=== PATIENT | male | born 1935 | race Caucasian/White ===

== ENCOUNTER 2016-11-28 20:00 | Emergency (ER) | payer OTHER, MEDICARE ==
[~2016-11-28] VITALS: Ht 170.2 cm; Wt 95.3 kg
--- NOTE | 2016-11-28 21:38 | RADIOLOGY REPORT ---
EXAMINATION: XR CHEST CLINICAL INFORMATION: Hemoptysis. COMPARISON: Chest x-ray 02/24/2013 TECHNIQUE: 2 views of the chest were obtained. FINDINGS: Lungs are clear. No pulmonary vascular congestion. No infiltrate or pleural effusion. The heart size is normal. The cardiac and mediastinal contours are normal. There are calcifications of the thoracic aorta. There are multilevel degenerative changes of dorsal spine. Joint narrowing with spurring of the glenohumeral joint of both shoulders right worse than left. IMPRESSION: No acute change of the chest.
--- NOTE | 2016-11-28 21:56 | ED GENERAL ADULT ---
History of Present Illness General Chief Complaint: General Adult Stated Complaint: SPITTING UP BLOOD ?FOOD STUCK IN THROAT Source: patient, family, old records Exam Limitations: no limitations Vital Signs & Intake/Output Vital Signs & Intake/Output Vital Signs Date Time Temp Pulse Resp B/P B/P Pulse O2 O2 Flow FiO2 Mean Ox Delivery Rate 11/30 911 97.4 73 20 135/71 98 Room Air Room Air 11/29 0617 97.5 71 18 141/71 98 Room Air 11/29 0307 97.4 72 18 154/71 97 Room Air 11/29 0056 97.2 67 18 165/71 97 Room Air 11/29 0053 97 Room Air 11/28 2014 98.8 86 16 135/56 99 Room Air ED Intake and Output 11/29 0000 11/28 1200 Intake Total Output Total Balance Patient 210 lb Weight Weight Reported by Patient Measurement Method Allergies Coded Allergies: Penicillins (UNKNOWN 11/28/16) Sulfa (Sulfonamide Antibiotics) (UNKNOWN 11/28/16) cephalexin (UNKNOWN 11/28/16) Reconcile Medications Amlodipine Besylate 10 MG TABLET 1 TAB PO DAILY BP (Reported) Amoxicillin 500 MG CAPSULE 4 CAP PO AD PRN PRIOR TO DENTAL APPT (Reported) Aspirin (Ecotrin*) 81 MG TABLET.DR 1 TAB PO DAILY HEART/BLOOD (Reported) Carboxymethylcellulose Sodium (Retaine Cmc) (Unknown Strength) DROPERETTE ( Unknown Dose) OPH BID BOTH EYES (Reported) Cholecalciferol (Vitamin D3) (Vitamin D) 2,000 UNIT TABLET 1 TAB PO DAILY SUPPLEMENT (Reported) Clonazepam 1 MG TABLET 1 TAB PO QPM ANXIETY/SLEEP (Reported) Cyclosporine (Restasis) 0.05 % DROPERETTE 1 GTT OPH BID BOTH EYES (Reported) Dabigatran Etexilate Mesylate (Pradaxa 150 MG) 150 MG CAPSULE 1 CAP PO BID BLOOD THINNER (Reported) Ezetimibe (Zetia) 10 MG TABLET 1 TAB PO DAILY CHOLESTEROL (Reported) Levothyroxine Sodium (Synthroid) 200 MCG TABLET 1 TAB PO DAILY THYROID ( Reported) Mirabegron (Myrbetriq) 50 MG TAB.ER.24H 1 TAB PO DAILY (Reported) Multivitamin (Multi-Day Vitamins) 1 EACH TABLET 1 TAB PO DAILY SUPPLEMENT ( Reported) Niacin 250 MG TABLET 1 TAB PO EOD CHOLESTEROL (Reported) [place]-3 Fatty Acids/Fish Oil (Fish Oil 1,200 MG Softgel) 360 MG-1,200 MG CAPSULE 2 CAP PO DAILY SUPPLEMENT (Reported) Omeprazole Magnesium (Prilosec Otc) 20 MG TABLET.DR 1 TAB PO DAILY GI ( Reported) Ropinirole HCl (Requip) 2 MG TABLET 1 TAB PO QPM RLS (Reported) Valsartan 160 MG TABLET 1 TAB PO DAILY BP (Reported) Vit C/E/Zn/Coppr/Lutein/Zeaxan (Preservision Areds 2 Softgel) 250-200-40 CAPSULE 1 CAP PO BID SUPPLEMENT (Reported) Triage Note: TRIAGE: HX OF FOOD BOLUS ISSUES AND SEEN BY DR SMITH FOR SAME. ATE A HOT DOG APPROX 5:30 EXPERIENCED PIECE STUCK IN THROAT, WAS ABLE TO EXPEL IT AND OBSERVED BLOOD WITH EMESIS. FEELS THAT FOOD IS STILL STUCK IN HIS THROAT. CONCERNED FOR PHARYNGEAL/ESOPHOGEAL IRRITATION OR LACERATION. PT NOTED TO HAVE FREQUENT BELCHING IN TRIAGE. SPEAKING IN FULL, CLEAR SENTENCES WITH NO ACUTE RESPIRATORY DISTRESS. NO ACTIVE BLEEDING, CHOKING, OR VOMITING AT THIS TIME. PT TAKES PRADAXA FOR AFIB Triage Nurses Notes Reviewed? yes Onset: Abrupt Duration: hour(s): (3-4 HOURS) Timing: single episode today Severity: mild, moderate Severity Numbers: 4 No Modifying Factors: none HPI: 81-year-old male history of A. fib on PrADAXA hypertension and GERD presents for evaluation of possible bloody emesis. Patient with approximately 5:30 PM today he was eating a hot dog and he felt the sensation that the hot dog was stuck in his throat. He was able to expel the hot dog but reports that he noticed blood amount along with the food bolus. Patient with that he has had issues with foreign body sensation in his throat previously and has had multiple swallow studies and been within normal limits. Patient is currently reporting epigastric abdominal pain increased burping and bloody emesis. Patient denies ever previously having bloody emesis. He denies feeling nauseous chest pain shortness of breath, diarrhea, fever. He has had multiple previous abdominal surgeries. No other associated symptoms. (FERNANDO ALCOCER PA-C) Past History Travel History Traveled to [place] past 21 day No Medical History Any Pertinent Medical History? see below for history Neurological: NONE EENT: cataracts, glaucoma Cardiovascular: AFIB, hypertension Respiratory: SLEEP APNEA Gastrointestinal: GERD, DYSPHAGIA/FOOD BOLUS Hepatic: NONE Renal: NOCTURNAL POLYURIA Musculoskeletal: RESTLESS LEGS Psychiatric: anxiety Endocrine: hypothyroidism Influenza Vaccine: 04/01/10 Surgical History Surgical History: colon resection Psychosocial History Who do you live with Spouse Services at Home None What is your primary language Georgian Tobacco Use: Never used Family History Hx Contributory? Yes (FERNANDO ALCOCER PA-C) Review of Systems Review of Systems Constitutional: Reports: no symptoms. EENTM: Reports: no symptoms. Respiratory: Reports: no symptoms. Cardiovascular: Reports: no symptoms. GI: Reports: see HPI, abdominal pain. Genitourinary: Reports: no symptoms. Musculoskeletal: Reports: no symptoms. Skin: Reports: no symptoms. Neurological/Psychological: Reports: no symptoms. Hematologic/Endocrine: Reports: no symptoms. Immunologic/Allergic: Reports: no symptoms. All Other Systems: Reviewed and Negative (CARLYN PERLA,FERNANDO) Physical Exam Physical Exam General Appearance: well developed/nourished, no apparent distress, alert, awake Head: atraumatic, normal appearance Eyes: Bilateral: normal appearance, PERRL, EOMI. Ears, Nose, Throat: normal pharynx, normal ENT inspection, hearing grossly normal Neck: normal inspection, supple, full range of motion Respiratory: normal breath sounds, chest non-tender, no respiratory distress, lungs clear Cardiovascular: regular rate/rhythm, normal peripheral pulses Peripheral Pulses: 2+ radial (R), 2+ radial (L) Gastrointestinal: normal bowel sounds, soft, distention, tenderness (EPIGASTRIC) Back: normal inspection, normal range of motion Extremities: normal inspection, normal capillary refill, normal range of motion, no edema Neurologic/Psych: no motor/sensory deficits, awake, alert, oriented x 3, normal gait, normal mood/affect Reflexes: 2+: knee (R), knee (L). Skin: intact, normal color, warm/dry Lymphatic: no anterior cervical annabella Comments: Patient is repeatedly burping on exam. He is also spitting up dark red blood. He is able to swallow fluids. No respiratory distress he is tolerating secretions. Core Measures ACS in differential dx? Yes CVA/TIA Diagnosis: No Severe Sepsis Present: No Septic Shock Present: No (CARLYN PERLA,FERNANDO) Progress Differential Diagnoses I considered the following diagnoses in my evaluation of the patient: SBO, acute NC, acute coronary syndrome, foreign body aspiration, upper GI bleed, peptic ulcer disease, pancreatitis, esophageal foreign body Plan of Care: Orders Procedure Date/time Status LIPASE 11/28 2209 Complete URINALYSIS 11/28 2153 Complete TROPONIN LEVEL 11/28 2153 Complete PROTHROMBIN TIME 11/28 2153 Complete C-REACTIVE PROTEIN 11/28 2153 Complete COMPREHENSIVE METABOLIC PANEL 11/28 2153 Complete CBC WITHOUT DIFFERENTIAL 11/28 2153 Complete Laboratory Tests 11/29/16 0030: Urinalysis MOD H, Urine Color YEL, Urine Clarity CLEAR, Urine pH 6.0, Ur Specific [place] 1.020, Urine Protein 100 H, Urine Ketones NEG, Urine Nitrite NEG, Urine Bilirubin NEG, Urine Urobilinogen 0.2, Ur Leukocyte Esterase NEG, Ur Microscopic SEDIMENT EXAMINED, Urine RBC RARE, Urine WBC RARE, Ur Epithelial Cells RARE, Hyaline Casts RARE H, Urine Mucus FEW, Urine Hemoglobin NEG, Urine Glucose NEG 11/28/162209: Anion Gap 11, Estimated GFR 42 L, BUN/Creatinine Ratio 32.5 H, Glucose 126 H, Calcium 9.8, Total Bilirubin 0.5, AST 20, ALT 23, Alkaline Phosphatase 84, Troponin I < 0.01, C-Reactive Prot, Quant 1.1 H, Total Protein 6.7, Albumin 3.8 , Globulin 2.9, Albumin/Globulin Ratio 1.3, Lipase 82, PT 14.9 H, INR 1.42 H, CBC w Diff NO MAN DIFF REQ, RBC 4.33 L, MCV 90.9, MCH 30.9, RDW 14.8 H, MPV 6.5 L, Gran % 75.6 H, Lymphocytes % 15.3 L, Monocytes % 7.1, Eosinophils % 1.6, Basophils % 0.4, Absolute Granulocytes 6.6 H, Absolute Lymphocytes 1.3, Absolute Monocytes 0.6, Absolute Eosinophils 0.1, Absolute Basophils 0, PUBS MCHC 34.0 11/28/162154: Lipase Cancelled Patient seen and evaluated. Chest x-ray was within normal limits. Blood work was sent and CT of the abdomen and pelvis ordered to rule out small bowel obstruction. Patient was given a cup of water which he was able to tolerate. He has been spitting up dark blood mixed with saliva and he has been repeatedly burping. He is still reporting pain in the epigastric area but denies any pain medication or antinausea medication. 11:22 PM spoke with Rick radiologist's regarding CAT scan. There is possible foreign body to distal esophagus that may be causing patient's symptoms. There is also a report of an incidental kidney lesion that pt reports he is already aware of. Patient has been trying to drink down water but every time he experiences significant epigastric pain and spits up bloody discharge. Discussed all results with patient. Patient will be given 1 mg of glucagon IV along with 1 L normal saline to attempt to clear the foreign body. It glucagon is not successful GI will be called. Case discussed with Dr. Hardy who is in agreement the plan. 1:06 AM patient is still unable tolerate fluids completely despite glucagon. GI was called for possible scope. Spoke with Dr. Khan he says that he will see him in the morning for a possible scope. Patient will remain in emergency department until he is seen by GI in the morning. All results discussed with patient and son. Patient is in agreement with the plan is nontoxic appearing. Case discussed with Dr. Hardy who agrees with the plan. (CARLYN PERLA,FERNANDO) Diagnostic Imaging: Viewed by Me: Radiology Read, CT Scan. Initial ED EKG: none Hand-Off Endorsed To: CACHORRO LUX,KRZYSZTOF Anna Endorsed Time: 135 Pending: consult (GI) Comments: EXAMINATION: XR CHEST CLINICAL INFORMATION: Hemoptysis. COMPARISON: Chest x-ray 02/24/2013 TECHNIQUE: 2 views of the chest were obtained. FINDINGS: Lungs are clear. No pulmonary vascular congestion. No infiltrate or pleural effusion. The heart size is normal. The cardiac and mediastinal contours are normal. There are calcifications of the thoracic aorta. There are multilevel degenerative changes of dorsal spine. Joint narrowing with spurring of the glenohumeral joint of both shoulders right worse than left. IMPRESSION: No acute change of the chest. EXAM TYPE: CAT - CT ABD & PELVIS W/O IV CONTRAS EXAMINATION: CT ABDOMEN AND PELVIS WITHOUT CONTRAST CLINICAL INFORMATION: Epigastric abdominal pain. COMPARISON: MRI abdomen 10/29/2015 and 10/20/2016. CT abdomen and pelvis with contrast 08/26/2014. Multiple prior MRIs of the abdomen dating back to 07/31/2012. TECHNIQUE: Multidetector volumetric imaging was performed from the superior aspect of the liver through the pubic symphysis. Sagittal and coronal reformatted images were obtained on the technologist's workstation. DLP: 726 mGy-cm FINDINGS: LUNG BASES: The visualized lung bases are unremarkable. LIVER, GALLBLADDER, AND BILIARY TREE: The liver is normal in size, shape, and attenuation. No focal hepatic lesion or biliary ductal dilatation is present. The gallbladder is unremarkable with no evidence of radiopaque gallstones, gallbladder wall thickening, or obvious pericholecystic inflammatory changes. PANCREAS: Generalized pancreatic atrophy. Redemonstrated is a 1.6 cm hypoattenuating lesion within the proximal body of the pancreas, corresponding to a previously identified pancreatic cyst. SPLEEN: Unremarkable. ADRENAL GLANDS: Unremarkable. KIDNEYS AND URETERS: Evaluation of the bilateral kidneys and renal collecting systems is notable for several hypoattenuating lesions scattered throughout the bilateral kidneys, corresponding to previously identified bilateral simple renal cortical cysts. Redemonstrated is an indeterminate lesion within the upper pole of the right kidney measuring approximately 2.1 x 2.6 cm and approximately 42 Hounsfield units. This may reflect a complex renal cortical cyst with proteinaceous/hemorrhagic debris. However, a solid renal mass cannot be entirely excluded. This lesion is visualized on multiple prior CTs and MRIs of the abdomen dating back to 2013 but was suboptimally evaluated secondary to respiratory motion abnormality or lack of intravenous contrast. BLADDER: Unremarkable. GASTROINTESTINAL TRACT: Evaluation of the gastrointestinal system is notable for a 2.2 x 2.4 x 2.4 cm hypoattenuating density within the distal esophagus, just proximal to the chest proximal to the gastroesophageal junction, measuring approximately -5 Hounsfield units. There is normal anatomic orientation of the stomach relative to the duodenum. Normal caliber of abdominal and pelvic bowel loops, without evidence of obstruction or ileus. No circumferential bowel wall thickening with surrounding inflammatory changes to suggest an underlying infectious or inflammatory enterocolitis. Normal-appearing appendix within the right lower quadrant of the abdomen. Scattered colonic diverticulosis, without secondary signs of acute diverticulitis. Of note, there is a moderate amount of retained stool throughout the abdomen. No organizing intra-abdominal fluid collections or free intraperitoneal air. ABDOMINAL WALL: Redemonstrated are postsurgical changes related to prior ventral abdominal wall hernia repair. No findings suggestive of recurrent hernia. LYMPH NODES: No significant abdominal or pelvic adenopathy. VASCULAR: Scattered atherosclerosis of the abdominal aorta and its branching vessels, without aneurysmal dilatation. Limited evaluation for vascular patency given lack of intravenous contrast. PELVIC VISCERA: The prostate gland is again noted to be enlarged and is visualized measuring 5.5 x 7.0 cm in AP and transverse dimensions respectively. OSSEOUS STRUCTURES: No acute osseous abnormality. 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 No visible destructive osseous lesions. IMPRESSION: 1. A 2.2 x 2.4 x 2.4 cm hypoattenuating density within the distal esophagus, just proximal to the gastroesophageal junction, measuring approximately -5 Hounsfield units. This finding is nonspecific and may reflect ingested food material or debris within the distal esophagus. If the patient remains symptomatic or if the patient is experiencing dysphagia, consider correlation with a fluoroscopic esophagram. 2. A moderate amount of retained stool throughout the colon. Normal caliber of abdominal and pelvic bowel loops, without findings indicative of small bowel obstruction or ileus. 3. A 2.1 x 2.6 cm heterogeneous mass arising from the upper pole of the right kidney. This mass has been incompletely evaluated on multiple prior MRIs of the abdomen secondary to respiratory motion abnormality and various other technical limitations. It demonstrated enhancement on a prior CT of the abdomen and pelvis dating back to 08/26/2014, which is suspicious. A solid renal neoplasm cannot be excluded. Recommend correlation with a nonemergent multiphase contrast-enhanced CT of the abdomen (renal mass protocol). 4. Multiple bilateral simple renal cortical cysts. This critical result was discussed with Dr. Fernando Alcocer at 11:20 PM on 11/28/2016 and it was ascertained that the content and urgency of the report was understood at the time of direct communication. (FERNANDO ALCOCER PA-C) Differential Diagnoses I considered the following diagnoses in my evaluation of the patient: Hand-Off Endorsed To: RONAN BERRY MD Endorsed Time: 0700 Pending: consult (GI) (CACHORRO LUX,KRZYSZTOF Anna) Departure Departure Condition: Stable Clinical Impression Primary Impression: Esophageal foreign body Qualifiers: Encounter type: initial encounter Qualified Code: T18.108A - Unspecified foreign body in esophagus causing other injury, initial encounter Departure Forms: Customer Survey General Discharge Information (CARLYN PERLA,FERNANDO) PA/SENIOR DIRECTOR OF STRATEGY Co-Sign Statement Statement: ED Attending supervision documentation- [X] I saw and evaluated the patient. I have also reviewed all the pertinent lab results and diagnostic results. I agree with the findings and the plan of care as documented in the PA's/SENIOR DIRECTOR OF STRATEGY's documentation. [X] I have reviewed the ED Record and agree with the PA's/SENIOR DIRECTOR OF STRATEGY's documentation. [] Additions or exceptions (if any) to the PAs/SENIOR DIRECTOR OF STRATEGY's note and plan are summarized below: [] (CACHORRO LUX,KRZYSZTOF Anna) Departure Time of Disposition: 1006 Disposition: HOME OR SELF CARE Referrals: SARAH LUX,GRETA Sanabria Call for appointment tomorrow to discuss Pradaxa, diet GISELLA LUX,Saima STEVEN (PCP/Family) Prescriptions: Current Visit Scripts Sucralfate (Carafate) 10 ML PO 4 TIMES/DAY #480 ML 1 hour before food and bedtime Pantoprazole Sodium (Protonix) 1 TAB PO BID #30 TAB PA/SENIOR DIRECTOR OF STRATEGY Co-Sign Statement Statement: ED Attending supervision documentation- x I saw and evaluated the patient. I have also reviewed all the pertinent lab results and diagnostic results. I agree with the findings and the plan of care as documented in the PA's/SENIOR DIRECTOR OF STRATEGY's documentation. I have reviewed the ED Record and agree with the PA's/SENIOR DIRECTOR OF STRATEGY's documentation. [] Additions or exceptions (if any) to the PAs/SENIOR DIRECTOR OF STRATEGY's note and plan are summarized below: [] (JAMAL LUX,RONAN) Critical Care Note Critical Care Note Critical Care Time: non-applicable (CARLYN PERLA,FERNANDO)
[2016-11-28 22:23] LABS: ABSOLUTE BASOPHIL COUNT 0 /CUMM (0.0-0.2); ABSOLUTE EOSINOPHIL COUNT 0.1 /CUMM (0.0-0.7); ABSOLUTE GRANULOCYTE CT 6.6 /CUMM (1.4-6.5); ABSOLUTE LYMPH COUNT 1.3 /CUMM (1.2-3.4); ABSOLUTE MONOCYTE COUNT 0.6 /CUMM (0.10-0.60); BASOPHIL % 0.4 % (0.0-2.0); EOSINOPHIL % 1.6 % (0-5); GRANULOCYTE % 75.6 % (42.2-75.2); HEMATOCRIT 39.4 % (42-52); MEAN CORPUSCULAR HGB 30.9 PG (27.0-31.0); MEAN CORPUSCULAR VOLUME 90.9 FL (80.0-94.0); MEAN PLATELET VOLUME 6.5 FL (7.4-10.4); PLATELET COUNT 181 /CUMM (130-400); RBC DISTRIBUTION WIDTH 14.8 % (11.5-14.5); RED BLOOD CELL CT 4.33 /CUMM (4.70-6.10); WHITE BLOOD CELL COUNT 8.8 /CUMM (4.8-10.8)
[2016-11-28 22:28] LABS: PT 14.9 SEC (9.4-12.5)
[2016-11-28] MEDS ORDERED: VALSARTAN160 M1 PO (22:55)
[2016-11-28] MEDS ORDERED: AMLODIPINE BESY10 M1 PO (22:55)
[2016-11-28] MEDS ORDERED: ZETIA10 M1 PO (22:56)
[2016-11-28] MEDS ORDERED: SYNTHROID200 MCG PO (22:56)
[2016-11-28] MEDS ORDERED: PRADAXA150 M1 PO (22:57)
[2016-11-28] MEDS ORDERED: NIACIN250 M3 PO (22:57)
[2016-11-28] MEDS ORDERED: REQUIP2 M1 PO (22:58)
[2016-11-28] MEDS ORDERED: CLONAZEPAM1 M2 PO (22:58)
[2016-11-28] MEDS ORDERED: ASPIRIN EC81 M1 PO (22:58)
[2016-11-28] MEDS ORDERED: AMOXICILLIN500 M2 PO (22:59)
[2016-11-28] MEDS ORDERED: MYRBETRIQ50 M1 PO (22:59)
[2016-11-28] MEDS ORDERED: FISH OIL 1,2001 EAC4 PO (23:00)
[2016-11-28] MEDS ORDERED: PRESERVISION A1 EAC1 PO (23:00)
[2016-11-28] MEDS ORDERED: [UNRECOGNIZED DRUG - OTHER] OPH (23:01)
[2016-11-28] MEDS ORDERED: RESTASIS1 EACH OPH (23:01)
[2016-11-28] MEDS ORDERED: PRILOSEC OTC20 M1 PO (23:02)
[2016-11-28] MEDS ORDERED: VITAMIN D2000 UNI1 PO (23:02)
[2016-11-28] MEDS ORDERED: MULTI-DAY VITA1 EACH PO (23:02)
--- NOTE | 2016-11-28 23:24 | CT SCAN REPORT ---
EXAMINATION: CT ABDOMEN AND PELVIS WITHOUT CONTRAST CLINICAL INFORMATION: Epigastric abdominal pain. COMPARISON: MRI abdomen 10/29/2015 and 10/20/2016. CT abdomen and pelvis with contrast 08/26/2014. Multiple prior MRIs of the abdomen dating back to 07/31/2012. TECHNIQUE: Multidetector volumetric imaging was performed from the superior aspect of the liver through the pubic symphysis. Sagittal and coronal reformatted images were obtained on the technologist's workstation. DLP: 726 mGy-cm FINDINGS: LUNG BASES: The visualized lung bases are unremarkable. LIVER, GALLBLADDER, AND BILIARY TREE: The liver is normal in size, shape, and attenuation. No focal hepatic lesion or biliary ductal dilatation is present. The gallbladder is unremarkable with no evidence of radiopaque gallstones, gallbladder wall thickening, or obvious pericholecystic inflammatory changes. PANCREAS: Generalized pancreatic atrophy. Redemonstrated is a 1.6 cm hypoattenuating lesion within the proximal body of the pancreas, corresponding to a previously identified pancreatic cyst. SPLEEN: Unremarkable. ADRENAL GLANDS: Unremarkable. KIDNEYS AND URETERS: Evaluation of the bilateral kidneys and renal collecting systems is notable for several hypoattenuating lesions scattered throughout the bilateral kidneys, corresponding to previously identified bilateral simple renal cortical cysts. Redemonstrated is an indeterminate lesion within the upper pole of the right kidney measuring approximately 2.1 x 2.6 cm and approximately 42 Hounsfield units. This may reflect a complex renal cortical cyst with proteinaceous/hemorrhagic debris. However, a solid renal mass cannot be entirely excluded. This lesion is visualized on multiple prior CTs and MRIs of the abdomen dating back to 2013 but was suboptimally evaluated secondary to respiratory motion abnormality or lack of intravenous contrast. BLADDER: Unremarkable. GASTROINTESTINAL TRACT: Evaluation of the gastrointestinal system is notable for a 2.2 x 2.4 x 2.4 cm hypoattenuating density within the distal esophagus, just proximal to the chest proximal to the gastroesophageal junction, measuring approximately -5 Hounsfield units. There is normal anatomic orientation of the stomach relative to the duodenum. Normal caliber of abdominal and pelvic bowel loops, without evidence of obstruction or ileus. No circumferential bowel wall thickening with surrounding inflammatory changes to suggest an underlying infectious or inflammatory enterocolitis. Normal-appearing appendix within the right lower quadrant of the abdomen. Scattered colonic diverticulosis, without secondary signs of acute diverticulitis. Of note, there is a moderate amount of retained stool throughout the abdomen. No organizing intra-abdominal fluid collections or free intraperitoneal air. ABDOMINAL WALL: Redemonstrated are postsurgical changes related to prior ventral abdominal wall hernia repair. No findings suggestive of recurrent hernia. LYMPH NODES: No significant abdominal or pelvic adenopathy. VASCULAR: Scattered atherosclerosis of the abdominal aorta and its branching vessels, without aneurysmal dilatation. Limited evaluation for vascular patency given lack of intravenous contrast. PELVIC VISCERA: The prostate gland is again noted to be enlarged and is visualized measuring 5.5 x 7.0 cm in AP and transverse dimensions respectively. OSSEOUS STRUCTURES: No acute osseous abnormality. 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 No visible destructive osseous lesions. IMPRESSION: 1. A 2.2 x 2.4 x 2.4 cm hypoattenuating density within the distal esophagus, just proximal to the gastroesophageal junction, measuring approximately -5 Hounsfield units. This finding is nonspecific and may reflect ingested food material or debris within the distal esophagus. If the patient remains symptomatic or if the patient is experiencing dysphagia, consider correlation with a fluoroscopic esophagram. 2. A moderate amount of retained stool throughout the colon. Normal caliber of abdominal and pelvic bowel loops, without findings indicative of small bowel obstruction or ileus. 3. A 2.1 x 2.6 cm heterogeneous mass arising from the upper pole of the right kidney. This mass has been incompletely evaluated on multiple prior MRIs of the abdomen secondary to respiratory motion abnormality and various other technical limitations. It demonstrated enhancement on a prior CT of the abdomen and pelvis dating back to 08/26/2014, which is suspicious. A solid renal neoplasm cannot be excluded. Recommend correlation with a nonemergent multiphase contrast-enhanced CT of the abdomen (renal mass protocol). 4. Multiple bilateral simple renal cortical cysts. This critical result was discussed with Dr. Matthieu Shore at 11:20 PM on 11/28/2016 and it was ascertained that the content and urgency of the report was understood at the time of direct communication.
--- NOTE | 2016-11-29 08:50 | Proc Note Endoscopy ---
Endoscopy Procedure Procedure Date: 11/29/16 Procedure Type: EGD with removal of foreign body Missionary Coordinator: Marco Khan M.D. ASA Classification: III Indications: Acute dysphagia secondary to esophageal food impaction Hematemesis CT scan demonstrating food and/or clot in esophagus The patient had acute dysphagia while eating yesterday evening. He has a remote history of food impaction, with endoscopic esophageal dilatation. He is on Pradaxa for atrial fibrillation, and aspirin, without antisecretory prophylaxis. While retching, he began to have bright red hematemesis. The patient continues to have a sensation of food in his esophagus, as well as low substernal/ epigastric pain. Instrument: diagnostic gastroscope Meds Received: ETT, TIVA Patient's Tolerance: good Complications: none Extent Reached: duodenal bulb Procedure: The patient signed informed consent, and was intubated and medicated. Pulse oximetry, blood pressure and cardiac monitoring were performed continuously throughout the procedure. The Olympus high-definition gastroscope was inserted into the mouth and advanced to the duodenum. Retroflexion was performed within the stomach to examine the cardia. Careful examination was performed. Findings: There was blood throughout the esophagus, which was washed away. The esophagus appeared to be dilated proximally. There was ulceration on one wall, beginning at 32 cm and extending to 36 cm. There was oozing of blood from 2 sites of the ulceration. There was a very large food bolus at 36 cm. There was narrowing in this area, with angulation immediately distally. This was passed with the endoscope. There were scattered erosions/areas of shallow ulceration distally. The mucosa of the distal esophagus was edematous. At 40 cm was a mucosal tear without significant bleeding. The GE junction was at 45 cm, where there was edema. It was not possible to determine the presence of a ring. There was no significant resistance to passage. There was no evident hiatal hernia. There was old blood and food stuff within the fundus, and in the antrum. The cardia was normal. Mucosa and folds of the stomach appeared normal. The pyloric channel was normal. The duodenal bulb was normal. Using a combination of Sinclair net and Twister Plus device, the bolus was partially removed by mouth. It was then possible to gently push the residuum through the GE junction into the stomach. At the termination of the procedure, there was no evident bleeding. Esophagus was washed and then watched carefully for several minutes. The hypopharynx was suctioned, and the patient extubated. Impression: * Esophageal food bolus impaction * Esophageal ulceration and edema, likely secondary to food impaction Recommendations: * Clear liquid diet * Hold Pradaxa * PPI twice a day * Sucralfate suspension 1 g by mouth 4 times a day * Call Dr. Reyes tomorrow to discuss diet, anticoagulation, and follow-up plans CC: SARAH LUX,GRETA Sanabria; GISELLA LUX,Saima STEVEN; DAVID LUX,[facility] - GRANBYAndria
[2016-11-29 09:12] VITALS: BP 135/71
[2016-11-29] MEDS ORDERED: PROTONIX20 M1 PO (10:09)
[2016-11-29] MEDS ORDERED: CARAFATE1 GM/10 M1 PO (10:09)
== END 2016-11-29 10:23 ==
LOC: ERH 20:00 → ENTRNSPT 11-29 06:14 → EDTRNSPTSTS 11-29 07:08 → CMPTRNSPT 11-29 07:23 → ERH 11-29 10:23
PROVIDERS: Physician Assistant Medical
DX: T18.128A Food in esophagus causing other injury, initial encounter (principal); R04.2 Hemoptysis; X58.XXXA Exposure to other specified factors, initial encounter; I48.91 Unspecified atrial fibrillation; I10 Essential (primary) hypertension; E03.9 Hypothyroidism, unspecified
CPT/HCPCS: 74176; 81001; 96374; J1610